=== PATIENT | male | born 1990 | race Caucasian/White ===

== ENCOUNTER 2025-07-30 17:14 | Emergency (ER) | payer BC, SELFPAY ==
[2025-07-30 17:18] VITALS: BP 131/80; PULSE 94; TEMP 36.9; O2SAT 98; BMI 21.3
[2025-07-30] MEDS: FLUORESCEIN SODIUM 1 MG STRIP OP (17:50)
--- NOTE | 2025-07-30 17:53 | ED.EYEPROB1 ---
HPI - Eye Problem General Chief complaint: Eye Problems Stated complaint: eye Time Seen by Provider: 07/30/25 17:22 Source: patient Mode of arrival: walk-in History of Present Illness HPI Narrative: Patient is a 35-year-old male who presents to the ER with concerns of right eye irritation. Notes some redness and foreign body sensation under his right upper lid. Patient states he was working in his shop. Patient does not wear contacts or glasses. Unsure of his last tetanus. States he did cut a metal pipe but was doing other various activities. He noted the foreign body sensation after entering his home to wash the [employer] and play cards with his children. He denies any vision loss or eye pain and there has been no drainage or discharge. Appropriately his spouse encouraged him to come be seen tonight for evaluation. MD chief complaint: Reports eye redness and foreign body; Denies vision change Onset description: Reports gradual Duration: Reports constant Location: Reports right eye Eye Symptoms: Reports foreign body sensation Place: Reports home Related Data Patient tetanus UTD: No Home Medications ?Medication ?Instructions ?Recorded ?Confirmed No Known Home Medications 07/30/25 07/30/25 Allergies Allergy/AdvReac Type Severity Reaction Status Date / Time No Known Drug Allergies Allergy Verified 07/30/25 17:18 Review of Systems ROS Constitutional Denies: fever or chills Eyes Denies: change in vision, blurry vision, blind spots, light sensitivity, eye discomfort or eye discharge Ears, nose, mouth, and throat Denies: throat pain, neck pain or throat swelling Cardiovascular Denies: chest pain, palpitations or edema Respiratory Denies: shortness of breath Gastrointestinal Denies: abdominal pain or nausea Genitourinary Denies: painful urination or difficulty urinating Integumentary/Breast Denies: rash Neurological Denies: headache Psychiatric Denies: anxiety PFSH PFSH Social History Little interest or pleasure in doing things: not at all Feeling down, depressed, or hopeless: not at all Exam Narrative Exam Narrative: Nurse's note reviewed and patient is not hypoxic. General: The patient appears well and in no apparent distress. Patient is resting comfortably on cart. Skin: Warm, dry, no pallor noted. Head: Normocephalic, atraumatic. Eye: Normal extraocular motion, pupils were equal round and reactive to light, the patient had no pain with extraocular motion. The patient had fluorescein dye instilled right eye.. The patient had exam with penn lamp that did showed no evidence of uptake. The patient had no involvement over the pupil. There was evidence or conjunctival injection. The patient's eyelid was everted and swept with Metalic FB noted under upper lid and removed with cotton tip swab. The patient had no swelling of the eyelids. Ears, Nose, Mouth, and Throat: oral mucosa is moist Respiratory: Patient is in no distress Neurological: Alert and oriented x4, normal speech Psychiatric: Cooperative Constitutional Vital Signs, click to edit/add: Last Vital Signs Temp 98.4 F 07/30/25 17:18 Pulse 94 H 07/30/25 17:18 Resp 16 07/30/25 17:18 BP 131/80 07/30/25 17:18 Pulse Ox 98 07/30/25 17:18 O2 Del Method Room Air 07/30/25 17:18 Course Vital Signs Vital signs: Vital Signs Temperature 98.4 F 07/30/25 17:18 Pulse Rate 94 H 07/30/25 17:18 Respiratory Rate 16 07/30/25 17:18 Blood Pressure 131/80 07/30/25 17:18 Pulse Oximetry 98 07/30/25 17:18 Oxygen Delivery Method Room Air 07/30/25 17:18 Temperature 98.4 F 07/30/25 17:18 Pulse Rate 94 H 07/30/25 17:18 Respiratory Rate 16 07/30/25 17:18 Blood Pressure 131/80 07/30/25 17:18 Pulse Oximetry 98 07/30/25 17:18 Oxygen Delivery Method Room Air 07/30/25 17:18 MDM - Eye Problem MDM Narrative Medical decision making narrative: After much deliberation the patient was agreeable to update his tetanus shot. We discussed to the foreign body under the eyelid, cannot comment on potential abrasions over the sclera of the eye but there is conjunctival injection. The cornea did not have any uptake with fluorescein dye instillation. He denies any pain and after removal of the foreign body he notes the sensation of foreign body has ceased. Patient will be placed on eyedrops prophylactically and agreeable to update on tetanus. We have given 2 different eye providers to follow-up with if symptoms are not improving for further evaluation. Patient was thankful and had no further concerns or questions. There was no visualized rust ring or abnormality of the cornea on close inspection prior to discharge. Patient encouraged to wear safety glasses with activities in his shop. The patient is to followup with primary care physician/ eye doctor in next 2-3 days or to return to the emergency department should any of the signs or symptoms worsen or new symptoms develop. Patient had questions answered. The patient agrees with the following Diagnosis and Treatment plan and the patient will be discharged home. Discharge Plan Discharge Chief Complaint: Eye Problems Clinical Impression: Foreign body of eyelid, right, Irritation of right eye Patient Disposition: Home, Self-Care Time of Disposition Decision: 17:54 Condition: Good Prescriptions / Home Meds: No Action No Known Home Medications Print Language: German Instructions: Eye Pain (ED) Additional Instructions: Use Bleph 10 Eye drops ( 2 drops every 4 hours for 5 days) Family Eye care: [phone] ( [facility])- call Thursday for appt if needed Dr. Lancaster if needed ( [place], [place]) -[phone] Referrals: Physician,Non-Staff, MD [Primary Care Provider] - 1 week
[2025-07-30] MEDS: SULFACETAMIDE SODIUM 10% OP 300 DROP/15 ML BOTTLE OP (18:04)
[2025-07-30] MEDS: DIPHTH,PERTUSS(ACELL),TET VAC 0.5 ML SYRINGE IM (18:05)
== END 2025-07-30 18:15 | disposition home or self-care (01) ==
PROVIDERS: Emergency Provider Emergency Medicine
DX: S00.251A Superficial foreign body of right eyelid and periocular area, initial encounter (principal); W44.8XXA Other foreign body entering into or through a natural orifice, initial encounter; Z23 Encounter for immunization; H57.89 Other specified disorders of eye and adnexa
CPT/HCPCS: 90471; 90715; 99283